=== PATIENT | male | born 1970 | race American Indian/Alaskan Native ===

== ENCOUNTER 2018-01-01 19:04 | Emergency (ER) | payer OTHER ==
[2018-01-01] MEDS ORDERED: NACL 0.9% 500 ML 500 ML IV ONE (19:22)
[2018-01-01] MEDS ORDERED: ADRENALIN SUB-Q ONE (19:22)
[2018-01-01] MEDS ORDERED: PEPCID IV ONE (19:23)
[2018-01-01] MEDS ORDERED: BENADRYL IV ONE (19:23)
--- NOTE | 2018-01-01 19:24 | Emergency Department Report ---
ED General Adult HPI - General Chief complaint: Allergic Reaction Stated complaint: TONGUE SWELLING Time Seen by Provider: 01/01/18 19:17 Source: patient, family, RN notes reviewed Mode of arrival: Ambulatory Limitations: No Limitations - History of Present Illness Initial comments: This is a 47-year-old male with a past medical history of schizophrenia, does not have a local primary care doctor, who presents to the ER with complaint of unprovoked painless swelling of the tongue. This started within the past 2 hours prior to presentation. This is never happened previously. Patient denies new medication, denies rash, denies new creams, colognes. His symptoms are constant, did not radiate anywhere, do not have exacerbating or relieving factors. He denies all other complaints. -: Sudden Location: mouth Radiation: non-radiation Consistency: constant Improves with: none Worsens with: none Associated Symptoms: denies: confusion, chest pain, cough, diaphoresis, fever/ chills, headaches, loss of appetite, malaise, nausea/vomiting, rash, seizure, shortness of breath, syncope, weakness - Related Data Home Medications Medication Instructions Recorded Confirmed Last Taken Brexpiprazole [Rexulti] 4 mg PO DAILY 01/01/18 01/01/18 Unknown Previous Rx's Medication Instructions Recorded Last Taken Type EPINEPHrine [Epipen 2-Demarco] 0.3 mg IM DAILY PRN #2 ml 01/01/18 Unknown Rx Famotidine [Pepcid] 20 mg PO BID #10 tablet 01/01/18 Unknown Rx diphenhydrAMINE [Benadryl] 50 mg PO Q8HR PRN #20 capsule 01/01/18 Unknown Rx predniSONE [Deltasone] 40 mg PO QDAY #8 tab 01/01/18 Unknown Rx Allergies Allergy/AdvReac Type Severity Reaction Status Date / Time Penicillins Allergy Swelling Verified 01/01/18 19:07 ED Review of Systems ROS: Stated complaint: TONGUE SWELLING Other details as noted in HPI Comment: All other systems reviewed and negative ED Past Medical Hx - Past Medical History Previous Medical History?: Yes Hx Psychiatric Treatment: Yes (schizophrenia) - Surgical History Past Surgical History?: No - Social History Smoking Status: Current Every Day Smoker Substance Use Type: Alcohol - Medications Home Medications: Home Medications Medication Instructions Recorded Confirmed Last Taken Type Brexpiprazole [Rexulti] 4 mg PO DAILY 01/01/18 01/01/18 Unknown History EPINEPHrine [Epipen 2-Demarco] 0.3 mg IM DAILY PRN #2 ml 01/01/18 Unknown Rx Famotidine [Pepcid] 20 mg PO BID #10 tablet 01/01/18 Unknown Rx diphenhydrAMINE [Benadryl] 50 mg PO Q8HR PRN #20 capsule 01/01/18 Unknown Rx predniSONE [Deltasone] 40 mg PO QDAY #8 tab 01/01/18 Unknown Rx ED Physical Exam - General Limitations: No Limitations General appearance: alert, in no apparent distress - Head Head exam: Present: atraumatic, normocephalic - Eye Eye exam: Present: normal appearance, PERRL, EOMI. Absent: nystagmus - ENT ENT exam: Present: mucous membranes moist, normal external ear exam, other ( speaking in full sentences. There is no stridor. There is no elevation of the uvula. There is no uvula enlargement.). Absent: normal orophraynx (there is lingual megaly.) - Neck Neck exam: Present: normal inspection, full ROM. Absent: tenderness, meningismus - Respiratory Respiratory exam: Present: normal lung sounds bilaterally. Absent: respiratory distress, chest wall tenderness - Cardiovascular Cardiovascular Exam: Present: regular rate, normal rhythm, normal heart sounds. Absent: bradycardia, tachycardia, irregular rhythm, systolic murmur, diastolic murmur, rubs, gallop - GI/Abdominal GI/Abdominal exam: Present: soft, normal bowel sounds. Absent: distended, tenderness, guarding, rebound, rigid, pulsatile mass - Rectal Rectal exam: Present: deferred - Extremities Exam Extremities exam: Present: normal inspection, full ROM, normal capillary refill , other (2+ pulses noted in the bilateral upper, lower extremities. Compartments soft. No long bony tenderness. The pelvis is stable.). Absent: pedal edema, joint swelling, calf tenderness - Back Exam Back exam: Present: normal inspection, full ROM. Absent: tenderness, CVA tenderness (R), paraspinal tenderness, vertebral tenderness - Neurological Exam Neurological exam: Present: alert, oriented X3, CN II-XII intact, other ( Extraocular movements intact. Tongue midline. No facial droop. Facial sensation intact to light touch in the V1, V2, V3 distribution bilaterally. 5 and 5 strength in 4 extremities.. Sensation is intact to light touch in 4 extremities.). Absent: motor sensory deficit - Psychiatric Psychiatric exam: Present: normal affect, normal mood - Skin Skin exam: Present: warm, dry, intact, normal color. Absent: rash ED Course Vital Signs 01/01/18 01/01/18 01/01/18 19:07 19:16 19:22 Temperature 98.4 F 98.2 F Pulse Rate 115 H 99 H 90 Respiratory 18 20 24 Rate Blood Pressure 74/45 103/68 Blood Pressure 103/68 [Right] O2 Sat by Pulse 97 100 Oximetry 01/01/18 01/01/18 01/01/18 19:30 20:00 21:00 Temperature Pulse Rate 90 91 H 100 H Respiratory 19 12 14 Rate Blood Pressure 111/69 123/90 123/90 Blood Pressure [Right] O2 Sat by Pulse 98 98 96 Oximetry - Reevaluation(s) Reevaluation #1: 01/01/18 19:47 Differential diagnosis, including when not limited to: Angioedema, anaphylaxis Assessment and plan: 47-year-old male with unprovoked idiopathic angioedema of the tongue. His hypotension has resolved, and his tachycardia has resolved. No obvious inciting agent based on his history, physical. He will be treated empirically with the typical allergy cocktail, as well as epinephrine empirically. He will be observed on a court monitor, and we will reassess. Reevaluation #2: 01/01/18 22:12 Patient has been reevaluated multiple times by myself. He continues to protect his airway, the tongue is not getting any bigger. He is not having any stridor. 01/01/18 23:01 Reevaluation #3: 01/01/18 23:02 Patient is reevaluated. The tongue is much smaller. He is speaking in full sentences. He has no airway difficulty. He is suitable for discharge at this time. He is eating and drinking. He will be discharged with appropriate medications and referred to outpatient primary care/allergy/ENT. ED Medical Decision Making - Lab Data Result diagrams: 01/01/18 19:23 01/01/18 19:23 Vital Signs 01/01/18 19:07 Temperature 98.4 F Pulse Rate 115 H Respiratory 18 Rate Blood Pressure 74/45 O2 Sat by Pulse 97 Oximetry Lab Results 01/01/18 Range/Units 19:23 WBC 6.5 (4.5-11.0) K/mm3 RBC 5.72 H (3.65-5.03) M/mm3 Hgb 18.6 H (11.8-15.2) gm/dl Hct 55.1 H (35.5-45.6) % MCV 97 H (84-94) fl MCH 33 H (28-32) pg MCHC 34 (32-34) % RDW 13.3 (13.2-15.2) % Plt Count 329 (140-440) K/mm3 - EKG Data When compared to previous EKG there are: previous EKG unavailable 01/01/18 19:50 Normal sinus, 97 beats per minute, normal axis, normal intervals, not a STEMI. Motion artifact noted. Critical care attestation.: If time is entered above; I have spent that time in minutes in the direct care of this critically ill patient, excluding procedure time. ED Disposition Clinical Impression: Tongue swelling Disposition: DC-01 TO HOME OR SELFCARE Is pt being admited?: No Condition: Good Instructions: Angioedema (ED) Additional Instructions: Take the steroids, Benadryl, Pepcid as directed for the next 5 days. Use the epinephrine pen only if patient develops inability to speak, inability to breathe, recurrent tongue swelling. Follow-up with an otolaryngology specialist, such as Dr. Owen Johnson , and photographic specialist (look on line to find one locally) or a primary care doctor for further evaluation of the tongue swelling within the next 5-7 days. Patient is theoretically at risk for rebound tongue swelling over the next 72 hours. Return to the ER right away with inability to speak, inability to breathe, recurrent swelling of the tongue, projectile vomiting, change in mental status. Referrals: PRIMARY CARE, [Primary Care Provider] - 3-5 Days ASHWINI KAMARA MD [Staff Physician] - 3-5 Days ANTWAN RODRIGUEZ MD [Staff Physician] - 3-5 Days
[2018-01-01 19:44] LABS: Hematocrit 55.1 % (35.5-45.6); Hemoglobin 18.6 gm/dl (11.8-15.2); Mean Corpuscular HGB Conc 34 % (32-34); Mean Corpuscular Hemoglobin 33 pg (28-32); Mean Corpuscular Volume 97 fl (84-94); Platelet Count 329 K/mm3 (140-440); Red Blood Count 5.72 M/mm3 (3.65-5.03); Red Cell Distribution Width 13.3 % (13.2-15.2)
[2018-01-01 19:54] LABS: INR 0.91 (0.87-1.13)
[2018-01-01 19:59] LABS: Alanine Aminotransferase 42 units/L (7-56); Albumin 4.3 g/dL (3.9-5); BUN/Creatinine Ratio 8; Blood Urea Nitrogen 10 mg/dL (9-20); Calcium 9.4 mg/dL (8.4-10.2); Hemolysis Index 21
[2018-01-01 23:50] VITALS: BP 107/77
== END 2018-01-01 23:50 | disposition home or self-care (01) ==
LOC: ED 19:04
DX: K14.8 Other diseases of tongue (principal); F20.9 Schizophrenia, unspecified; F17.200 Nicotine dependence, unspecified, uncomplicated; Z88.0 Allergy status to penicillin
CPT/HCPCS: 36415; 80053; 82550; 82962; 83735; 85027; 85610; 93005; 93010; 96372; 96374; 96375; 99284; J0171; J1200; J2930; J7040

== ENCOUNTER 2019-04-27 21:39 | Emergency (ER) | payer MEDICAID, MEDICARE, OTHER ==
[2019-04-27] MEDS ORDERED: ONDANSETRON 4 MG/2 ML INJ IV ONE (22:00)
[2019-04-27] MEDS ORDERED: MORPHINE 2 MG/1 ML INJ IV ONE (22:00)
[2019-04-27] MEDS ORDERED: FAMOTIDINE 20 MG/2 ML INJ IV ONE (22:00)
[2019-04-27] MEDS ORDERED: SODIUM CHLORIDE 0.9% 1000 ML 1,000 ML IV ONE (22:00)
--- NOTE | 2019-04-27 22:15 | Emergency Department Report ---
ED Abdominal Pain HPI - General Chief Complaint: Abdominal Pain Stated Complaint: N/V Time Seen by Provider: 04/27/19 21:50 Source: patient, EMS Mode of arrival: Stretcher Limitations: Physical Limitation - History of Present Illness Initial Comments: 48-year-old male, history of hypertension and alcohol abuse, reports that he drinks more than 12 beers a day plus hard liquor, presents to ED with vomiting and abdominal pain since earlier today. Patient denies vomiting blood or having any blood in the stool. Patient reports abdominal pain is located diffusely, nonradiating. MD Complaint: abdominal pain -: This afternoon Location: diffuse Radiation: none Migration to: no migration Severity: moderate Severity scale (0 -10): 10 Quality: cramping Consistency: constant Improves With: nothing Worsens With: nothing Associated Symptoms: nausea, vomiting, hematemesis, hematochezia, melena. denies: diarrhea, fever - Related Data Home Medications Medication Instructions Recorded Confirmed Last Taken Brexpiprazole [Rexulti] 4 mg PO DAILY 01/01/18 01/01/18 Unknown Previous Rx's Medication Instructions Recorded Last Taken Type EPINEPHrine [Epipen 2-Demarco] 0.3 mg IM DAILY PRN #2 ml 01/01/18 Unknown Rx Famotidine [Pepcid] 20 mg PO BID #10 tablet 01/01/18 Unknown Rx diphenhydrAMINE [Benadryl] 50 mg PO Q8HR PRN #20 capsule 01/01/18 Unknown Rx predniSONE [Deltasone] 40 mg PO QDAY #8 tab 01/01/18 Unknown Rx Dicyclomine [Bentyl] 20 mg PO QID PRN #20 tablet 04/28/19 Unknown Rx Ondansetron [Zofran Odt] 4 mg PO Q8HR PRN #20 tab.rapdis 04/28/19 Unknown Rx traMADoL [Ultram] 50 mg PO Q6HR PRN #7 tablet 04/28/19 Unknown Rx Allergies Allergy/AdvReac Type Severity Reaction Status Date / Time Penicillins Allergy Swelling Verified 01/01/18 19:07 ED Review of Systems ROS: Stated complaint: N/V Other details as noted in HPI Comment: All other systems reviewed and negative Constitutional: denies: chills, fever Gastrointestinal: abdominal pain, nausea, vomiting ED Past Medical Hx - Past Medical History Previous Medical History?: Yes Hx Hypertension: Yes Hx Psychiatric Treatment: Yes (schizophrenia) - Surgical History Past Surgical History?: No - Social History Smoking Status: Current Every Day Smoker Substance Use Type: Alcohol - Medications Home Medications: Home Medications Medication Instructions Recorded Confirmed Last Taken Type Brexpiprazole [Rexulti] 4 mg PO DAILY 01/01/18 01/01/18 Unknown History EPINEPHrine [Epipen 2-Demarco] 0.3 mg IM DAILY PRN #2 ml 01/01/18 Unknown Rx Famotidine [Pepcid] 20 mg PO BID #10 tablet 01/01/18 Unknown Rx diphenhydrAMINE [Benadryl] 50 mg PO Q8HR PRN #20 capsule 01/01/18 Unknown Rx predniSONE [Deltasone] 40 mg PO QDAY #8 tab 01/01/18 Unknown Rx Dicyclomine [Bentyl] 20 mg PO QID PRN #20 tablet 04/28/19 Unknown Rx Ondansetron [Zofran Odt] 4 mg PO Q8HR PRN #20 tab.rapdis 04/28/19 Unknown Rx traMADoL [Ultram] 50 mg PO Q6HR PRN #7 tablet 04/28/19 Unknown Rx ED Physical Exam - General Limitations: Physical Limitation General appearance: alert, in no apparent distress - Head Head exam: Present: atraumatic, normocephalic - Eye Eye exam: Present: normal appearance, PERRL, EOMI - ENT ENT exam: Present: mucous membranes moist - Neck Neck exam: Present: normal inspection - Respiratory Respiratory exam: Present: normal lung sounds bilaterally. Absent: respiratory distress - Cardiovascular Cardiovascular Exam: Present: regular rate, normal rhythm - GI/Abdominal GI/Abdominal exam: Present: soft, tenderness (diffuse tenderness). Absent: distended - Extremities Exam Extremities exam: Present: normal inspection - Neurological Exam Neurological exam: Present: alert, oriented X3 - Psychiatric Psychiatric exam: Present: normal affect, normal mood - Skin Skin exam: Present: warm, dry, intact, normal color ED Course Vital Signs 04/27/19 04/27/19 04/27/19 21:49 22:21 22:51 Temperature 98.2 F Pulse Rate 98 H Respiratory 22 16 16 Rate Blood Pressure 161/92 Blood Pressure 161/92 [Left] O2 Sat by Pulse 100 Oximetry 04/27/19 04/28/19 04/28/19 23:00 00:49 01:13 Temperature 98.2 F Pulse Rate 83 86 Respiratory 17 16 16 Rate Blood Pressure 136/83 Blood Pressure 138/86 [Left] O2 Sat by Pulse 98 97 Oximetry ED Medical Decision Making - Lab Data Result diagrams: 04/27/19 22:25 04/27/19 22:25 - Radiology Data Radiology results: report reviewed, image reviewed - Medical Decision Making 48-year-old male with acute alcoholic pancreatitis. Lipase level of 498, evidence of pancreatitis on CT. Remainder of labs are normal. Vital signs are normal as well. Pain improved with medications. No emesis here in ED. Clear liquid diet advised, patient's is at bedside. Outpatient follow-up advis ed. Return precautions given. Patient advised to abstain from alcohol use. - Differential Diagnosis pancreatitis, gastritis, bowel obstruction Critical care attestation.: If time is entered above; I have spent that time in minutes in the direct care of this critically ill patient, excluding procedure time. ED Disposition Clinical Impression: Acute alcoholic pancreatitis Disposition: TO HOME OR SELFCARE Is pt being admited?: No Condition: Stable Instructions: Pancreatitis (ED) Prescriptions: Dicyclomine [Bentyl] 20 mg PO QID PRN #20 tablet PRN Reason: abdominal pain traMADoL [Ultram] 50 mg PO Q6HR PRN #7 tablet PRN Reason: Pain Ondansetron [Zofran Odt] 4 mg PO Q8HR PRN #20 tab.rapdis PRN Reason: Vomiting Referrals: PRIMARY CARE, [Primary Care Provider] - 3-5 Days [facility] [Provider Group] - 3-5 Days [facility] [Provider Group] - 3-5 Days Forms: Accompanied Note Time of Disposition: 00:56
[2019-04-27 22:40] LABS: Basophils # (Auto) 0.1 K/mm3 (0.0-0.1); Basophils % (Auto) 1.1 % (0.0-1.8); Eosinophils # (Auto) 0.1 K/mm3 (0.0-0.4); Eosinophils % (Auto) 1.1 % (0.0-4.3); Hematocrit 44.6 % (35.5-45.6); Hemoglobin 15.2 gm/dl (11.8-15.2); Lymphocytes # (Auto) 1.6 K/mm3 (1.2-5.4); Lymphocytes % (Auto) 28.6 % (13.4-35.0); Mean Corpuscular HGB Conc 34 % (32-34); Mean Corpuscular Volume 98 fl (84-94); Monocytes # (Auto) 0.4 K/mm3 (0.0-0.8); Monocytes % (Auto) 7.8 % (0.0-7.3); Platelet Count 212 K/mm3 (140-440); Red Blood Count 4.58 M/mm3 (3.65-5.03); Red Cell Distribution Width 14.7 % (13.2-15.2)
[2019-04-27 22:54] LABS: Alanine Aminotransferase 16 units/L (7-56); Albumin 4.5 g/dL (3.9-5); BUN/Creatinine Ratio 11; Blood Urea Nitrogen 9 mg/dL (9-20); Calcium 8.9 mg/dL (8.4-10.2); Hemolysis Index 21
[2019-04-27 23:00] LABS: Bilirubin,Direct < 0.2 mg/dL (0-0.2)
--- NOTE | 2019-04-28 00:08 | Cat Scan Report ---
CT abdomen pelvis w con INDICATION: ABD PAIN. TECHNIQUE: All CT scans at this location are performed using the following dose modulation technique: Automated exposure control. CONTRAST: Omnipaque 300, 100 cc IV injection. COMPARISON: None available. CT abdomen: Evaluation the parenchymal organs demonstrates moderate enlargement of the pancreatic hea d/neck region with adjacent edema. There is mild involvement of the body/tail. The liver demonstrates diffuse fatty infiltration. Remaining parenchymal organs are unremarkable. Evaluation of the bowel demonstrates secondary inflammation of the duodenum. The remaining bowel is u nremarkable. No abdominal mass or localized fluid collection. CT PELVIS: Negative for mass, fluid or inflammation. IMPRESSION: 1. Moderate pancreatitis greatest at the pancreatic head, neck and uncinate process regions. 2. Secondary duodenal inflammation. 3. Mild fatty infiltration of the liver. Signer Name: Harris Eduardo MD Signed: 04/28/2019 12:03 AM Workstation Name: [id number]
[2019-04-28] MEDS ORDERED: MORPHINE 4 MG/1 ML INJ IV ONE (00:44)
[2019-04-28 01:13] VITALS: BP 138/86
== END 2019-04-28 01:15 | disposition home or self-care (01) ==
LOC: ED 21:39
DX: K85.20 Alcohol induced acute pancreatitis without necrosis or infection (principal); R11.2 Nausea with vomiting, unspecified; I10 Essential (primary) hypertension; F20.9 Schizophrenia, unspecified; F17.200 Nicotine dependence, unspecified, uncomplicated; F10.10 Alcohol abuse, uncomplicated; Z79.899 Other long term (current) drug therapy; Z88.0 Allergy status to penicillin
CPT/HCPCS: 36415; 74177; 80048; 80076; 83690; 85025; 96361; 96374; 96375; 96376; 99284; J2270; J2405; J7030; Q9967

== ENCOUNTER 2021-03-28 17:33 | Emergency (ER) | payer OTHER, MEDICAID ==
[2021-03-28] MEDS ORDERED: ONDANSETRON 4 MG ODT TAB PO ONE (17:56)
[2021-03-28] MEDS ORDERED: DICYCLOMINE 20 MG TAB PO ONE (17:56)
--- NOTE | 2021-03-28 17:56 | Emergency Department Report ---
HPI - General Chief Complaint: Chest Pain Time Seen by Provider: 03/28/21 17:43 - HPI HPI: 50-year-old -[place] male presents to the emergency department with a complaint of a 1 week history of upper abdominal pain that worsens with deep breaths. Overall the patient has been having some chronic abdominal pain as well for the past couple of "months." Patient was seen here in 2019 for alcoholic pancreatitis. Patient does admit to history of chronic alcohol use and dependence. However, the patient says that he has not been drinking much alcohol over the past week because of his symptoms. He also complains of nausea with occasional vomiting and decreased appetite. He denies any fever, diarrhea, constipation, back pain, dysuria. No recent travel or sick contacts at home. ED Past Medical Hx - Past Medical History Previous Medical History?: Yes Hx Hypertension: Yes Hx Psychiatric Treatment: Yes (schizophrenia) - Surgical History Past Surgical History?: No - Social History Smoking Status: Current Every Day Smoker Substance Use Type: Alcohol - Medications Home Medications: Home Medications Medication Instructions Recorded Confirmed Last Taken Type Brexpiprazole [Rexulti] 4 mg PO DAILY 01/01/18 01/01/18 Unknown History EPINEPHrine [Epipen 2-Demarco] 0.3 mg IM DAILY PRN #2 ml 01/01/18 Unknown Rx Famotidine [Pepcid] 20 mg PO BID #10 tablet 01/01/18 Unknown Rx diphenhydrAMINE [Benadryl] 50 mg PO Q8HR PRN #20 capsule 01/01/18 Unknown Rx predniSONE [Deltasone] 40 mg PO QDAY #8 tab 01/01/18 Unknown Rx Ondansetron [Zofran Odt] 4 mg PO Q8HR PRN #20 tab.rapdis 04/28/19 Unknown Rx traMADoL [Ultram] 50 mg PO Q6HR PRN #7 tablet 04/28/19 Unknown Rx Dicyclomine [Bentyl] 20 mg PO QID PRN #20 tablet 03/28/21 Unknown Rx Ondansetron [Zofran Odt] 4 mg PO Q8HR PRN #20 tab.rapdis 03/28/21 Unknown Rx ED Review of Systems ROS: Stated complaint: STOMACH AND CHEST PAIN Other details as noted in HPI Comment: All other systems reviewed and negative Constitutional: denies: chills, fever Eyes: denies: eye pain, vision change ENT: denies: ear pain, throat pain Respiratory: denies: cough, shortness of breath Cardiovascular: denies: chest pain, palpitations Gastrointestinal: abdominal pain, nausea, vomiting Genitourinary: denies: dysuria, discharge Musculoskeletal: denies: back pain, arthralgia Skin: denies: rash, lesions Neurological: denies: headache, weakness Physical Exam - Physical Exam Vital Signs: Vital Signs 03/28/21 17:40 Temperature 98.2 F Pulse Rate 102 H Respiratory 16 Rate Blood Pressure 140/81 [Left] O2 Sat by Pulse 100 Oximetry Physical Exam: GENERAL: The patient is well-developed well-nourished. HENT: Normocephalic. Atraumatic. Patient has moist mucous membranes. EYES: Extraocular motions are intact. NECK: Supple. Trachea is midline. CHEST/LUNGS: Clear to auscultation. There is no respiratory distress noted. HEART/CARDIOVASCULAR: Regular. There is no tachycardia. There is no murmur. ABDOMEN: Abdomen is soft. Upper abdominal tenderness to palpation. No guarding. Patient has normal bowel sounds. There is no abdominal distention. SKIN: Skin is warm and dry. NEURO: The patient is awake, alert, and oriented. The patient is cooperative. The patient has no focal neurologic deficits. Normal speech. MUSCULOSKELETAL: There is no tenderness or deformity. There is no limitation range of motion. ED Course Vital Signs 03/28/21 17:40 Temperature 98.2 F Pulse Rate 102 H Respiratory 16 Rate Blood Pressure 140/81 [Left] O2 Sat by Pulse 100 Oximetry ED Medical Decision Making - Lab Data Result diagrams: 03/28/21 18:04 03/28/21 18:04 Lab Results 03/28/21 03/28/21 03/28/21 Range/Units 18:04 18:04 18:04 WBC 6.5 (4.5-11.0) K/mm3 RBC 4.21 (3.65-5.03) M/mm3 Hgb 14.5 (11.8-15.2) gm/dl Hct 41.6 (35.5-45.6) % MCV 99 H (84-94) fl MCH 35 H (28-32) pg MCHC 35 H (32-34) % RDW 14.1 (13.2-15.2) % Plt Count 584 H (140-440) K/mm3 Lymph % (Auto) 17.5 (13.4-35.0) % Stearns % (Auto) 8.4 H (0.0-7.3) % Eos % (Auto) 0.6 (0.0-4.3) % Baso % (Auto) 1.4 (0.0-1.8) % Lymph # (Auto) 1.1 L (1.2-5.4) K/mm3 Stearns # (Auto) 0.5 (0.0-0.8) K/mm3 Eos # (Auto) 0.0 (0.0-0.4) K/mm3 Baso # (Auto) 0.1 (0.0-0.1) K/mm3 Seg Neutrophils % 72.1 H (40.0-70.0) % Seg Neutrophils # 4.7 (1.8-7.7) K/mm3 Sodium 131 L (137-145) mmol/L Potassium 3.7 (3.6-5.0) mmol/L Chloride 94.4 L (98-107) mmol/L Carbon Dioxide 22 (22-30) mmol/L Anion Gap 18 mmol/L BUN 3 L (9-20) mg/dL Creatinine 0.8 (0.8-1.3) mg/dL Estimated GFR > 60 ml/min BUN/Creatinine Ratio 4 % Glucose 130 H (75-100) mg/dL Calcium 9.1 (8.4-10.2) mg/dL Total Bilirubin < 0.20 (0.1-1.2) mg/dL Direct Bilirubin < 0.2 (0-0.2) mg/dL Indirect Bilirubin 0.0 mg/dL AST 21 (5-40) units/L ALT 21 (7-56) units/L Alkaline Phosphatase 93 (35-129) units/L Total Protein 7.1 (6.3-8.2) g/dL Albumin 3.6 L (3.9-5) g/dL Albumin/Globulin Ratio 1.0 % Lipase 65 H (13-60) units/L Urine Color (Yellow) Urine Turbidity (Clear) Urine pH (5.0-7.0) Ur Specific Chester (1.003-1.030) Urine Protein (Negative) mg/dL Urine Glucose (UA) (Negative) mg/dL Urine Ketones (Negative) mg/dL Urine Blood (Negative) Urine Nitrite (Negative) Urine Bilirubin (Negative) Urine Urobilinogen (<2.0) mg/dL Ur Leukocyte Esterase (Negative) Urine WBC (Auto) (0.0-6.0) /HPF Urine RBC (Auto) (0.0-6.0) /HPF U Epithel Cells (Auto) (0-13.0) /HPF Plasma/Serum Alcohol < 0.01 (0-0.07) % 03/28/21 Range/Units Unknown WBC (4.5-11.0) K/mm3 RBC (3.65-5.03) M/mm3 Hgb (11.8-15.2) gm/dl Hct (35.5-45.6) % MCV (84-94) fl MCH (28-32) pg MCHC (32-34) % RDW (13.2-15.2) % Plt Count (140-440) K/mm3 Lymph % (Auto) (13.4-35.0) % Stearns % (Auto) (0.0-7.3) % Eos % (Auto) (0.0-4.3) % Baso % (Auto) (0.0-1.8) % Lymph # (Auto) (1.2-5.4) K/mm3 Stearns # (Auto) (0.0-0.8) K/mm3 Eos # (Auto) (0.0-0.4) K/mm3 Baso # (Auto) (0.0-0.1) K/mm3 Seg Neutrophils % (40.0-70.0) % Seg Neutrophils # (1.8-7.7) K/mm3 Sodium (137-145) mmol/L Potassium (3.6-5.0) mmol/L Chloride (98-107) mmol/L Carbon Dioxide (22-30) mmol/L Anion Gap mmol/L BUN (9-20) mg/dL Creatinine (0.8-1.3) mg/dL Estimated GFR ml/min BUN/Creatinine Ratio % Glucose (75-100) mg/dL Calcium (8.4-10.2) mg/dL Total Bilirubin (0.1-1.2) mg/dL Direct Bilirubin (0-0.2) mg/dL Indirect Bilirubin mg/dL AST (5-40) units/L ALT (7-56) units/L Alkaline Phosphatase (35-129) units/L Total Protein (6.3-8.2) g/dL Albumin (3.9-5) g/dL Albumin/Globulin Ratio % Lipase (13-60) units/L Urine Color Yellow (Yellow) Urine Turbidity Clear (Clear) Urine pH 7.0 (5.0-7.0) Ur Specific [place] 1.009 (1.003-1.030) Urine Protein <15 mg/dl (Negative) mg/dL Urine Glucose (UA) 150 (Negative) mg/dL Urine Ketones Neg (Negative) mg/dL Urine Blood Neg (Negative) Urine Nitrite Neg (Negative) Urine Bilirubin Neg (Negative) Urine Urobilinogen < 2.0 (<2.0) mg/dL Ur Leukocyte Esterase Tr (Negative) Urine WBC (Auto) 1.0 (0.0-6.0) /HPF Urine RBC (Auto) 1.0 (0.0-6.0) /HPF U Epithel Cells (Auto) < 1.0 (0-13.0) /HPF Plasma/Serum Alcohol (0-0.07) % - Radiology Data Radiology results: image reviewed interpreted by me: Chest x-ray does not show any acute process. There are no pleural effusions, obvious pneumonia and there is no pneumothorax. No widened mediastinum. Abdominal x-ray shows nonspecific nonobstructive bowel gas. No free air. - Medical Decision Making This patient presents to the emergency department with a complaint of a 1 week history of some upper abdominal pain, but also admits to some intermittent chronic abdominal pains. Patient has a history of alcoholic pancreatitis from about 2 years ago. He continues to drink alcohol daily, but does not have any signs of acute intoxication and does not appear to be in alcohol withdrawal at this time. There is some reproducible upper abdominal tenderness to palpation, but the abdomen is soft, nondistended and nontoxic in appearance. He does not have any peritoneal signs. Labs have been mostly unremarkable including CBC, metabolic panel, but the lipase is slightly elevated at 65. This is nothing compared to the greater than 400 that he had during his last visit with acute pancreatitis, but could indicate early pancreatitis or chronic pancreatitis. Abdominal x-ray shows nonspecific nonobstructive bowel gas and no free air. Chest x-ray does not show any pneumonia, pleural effusions, pneumothorax, widened mediastinum, or any other acute process. Vital signs reassuring throughout his ED course including being afebrile. During one of my reevaluation's, the patient is seen resting comfortably and eating Starburst candy. The patient does not appear in any acute distress and does not appear to require a medical admission at this time. We discussed avoiding alcohol, fatty and spicy foods. The patient will be placed on Bentyl and Zofran ODT. He has been given outpatient referrals for primary care and gastroenterology. He will return to the emergency department with any worsening of his symptoms or with any acute distress. Critical Care Time: No Critical care attestation.: If time is entered above; I have spent that time in minutes in the direct care of this critically ill patient, excluding procedure time. ED Disposition Clinical Impression: Chronic alcohol use, Elevated lipase Abdominal pain Qualifiers: Abdominal location: upper abdomen, unspecified Qualified Code(s): R10.10 - Upper abdominal pain, unspecified Disposition: 01 HOME / SELF CARE / HOMELESS Is pt being admited?: No Condition: Stable Instructions: Alcohol Use Disorder, Abdominal Pain, Adult, Chronic Pancreati tis, Pancreatitis Eating Plan Additional Instructions: Please follow-up with a primary care physician in the next few days. I have given you a referral for a local primary care physician, Dr. Eckert, and a primary care clinic, [facility]. I have given you a referral for [facility] to follow-up regarding your abdominal pains and history of pancreatitis. Please avoid any further alcohol use and I have given you information regarding dietary changes to make. Return to the emergency department with any worsening of your symptoms, new or concerning symptoms not addressed during this current emergency department visit, or with any acute distress. Prescriptions: Dicyclomine [Bentyl] 20 mg PO QID PRN #20 tablet PRN Reason: abdominal pain Ondansetron [Zofran Odt] 4 mg PO Q8HR PRN #20 tab.rapdis PRN Reason: Nausea Referrals: AMADA ECKERT MD [Staff Physician] - 3-[address] [facility] [Provider Group] - 3-5 Days [facility] [Provider Group] - 3-5 Days Time of Disposition: 19:54
[2021-03-28 18:18] LABS: Basophils # (Auto) 0.1 K/mm3 (0.0-0.1); Basophils % (Auto) 1.4 % (0.0-1.8); Eosinophils % (Auto) 0.6 % (0.0-4.3); Hematocrit 41.6 % (35.5-45.6); Hemoglobin 14.5 gm/dl (11.8-15.2); Lymphocytes # (Auto) 1.1 K/mm3 (1.2-5.4); Lymphocytes % (Auto) 17.5 % (13.4-35.0); Mean Corpuscular HGB Conc 35 % (32-34); Mean Corpuscular Volume 99 fl (84-94); Monocytes # (Auto) 0.5 K/mm3 (0.0-0.8); Monocytes % (Auto) 8.4 % (0.0-7.3); Platelet Count 584 K/mm3 (140-440); Red Blood Count 4.21 M/mm3 (3.65-5.03); Red Cell Distribution Width 14.1 % (13.2-15.2)
--- NOTE | 2021-03-28 18:28 | XRay Report ---
Abdominal series and chest radiograph INDICATION: Pain FINDINGS: Lungs are clear heart size appears normal. Nonspecific bowel gas pattern. No large calcific ations. No acute bone findings. Signer Name: Manjit Saravia MD Signed: 03/28/2021 6:23 PM Workstation Name: [id number]
[2021-03-28 19:05] LABS: Bilirubin,Urine NEG (Negative); Blood,Urine NEG (Negative); Color,Urine Yellow (Yellow); Protein,Urine <15 mg/dL mg/dL (Negative); Urobilinogen,Urine < 2.0 mg/dL (<2.0)
[2021-03-28 19:07] LABS: Alanine Aminotransferase 21 units/L (7-56); Albumin 3.6 g/dL (3.9-5); BUN/Creatinine Ratio 4; Blood Urea Nitrogen 3 mg/dL (9-20); Calcium 9.1 mg/dL (8.4-10.2); Hemolysis Index 3
[2021-03-28 19:17] LABS: Bilirubin,Direct < 0.2 mg/dL (0-0.2)
[2021-03-28 20:34] VITALS: BP 116/75
== END 2021-03-28 21:17 | disposition home or self-care (01) ==
LOC: ED 17:33
DX: R10.10 Upper abdominal pain, unspecified (principal); R74.8 Abnormal levels of other serum enzymes; Z72.89 Other problems related to lifestyle; I10 Essential (primary) hypertension; F20.9 Schizophrenia, unspecified; F17.200 Nicotine dependence, unspecified, uncomplicated
CPT/HCPCS: 36415; 74022; 80048; 80076; 80320; 81001; 83690; 85025; 99284; G0480; Q0162

== ENCOUNTER 2021-05-17 10:44 | Outpatient (CLI) | payer MEDICAID ==
[2021-05-17 11:38] LABS: Blood Urea Nitrogen < 1 mg/dL (9-20)
--- NOTE | 2021-05-17 13:13 | Cat Scan Report ---
CT ABDOMEN AND PELVIS WITH CONTRAST HISTORY: Abdominal pain. COMPARISON: None. TECHNIQUE: CT images of the abdomen and pelvis were obtained following administration of intravenous contrast. All CT scans at this location are performed using CT dose reduction for ALARA by means of automated exposure control. CONTRAST: 100 ml of intravenous contrast administered. FINDINGS: Limited evaluation of the lung bases shows consolidation within the lung bases concerning for the pre sence of infection, most pronounced on the right. Enlarged edematous appearance of the pancreas with peripancreatic fluid stranding. Questionable hypoe nhancing components are noted primarily within the region of the head. No focal fluid collection to s uggest the presence of abscess. The liver, kidneys, spleen, adrenal glands, and gallbladder are unremarkable. Gastrointestinal tract shows no evidence of bowel wall thickening or pathologic distention. No free intraperitoneal gas. The appendix is visualized and is normal in appearance. Urinary bladder is unremarkable. Osseous structures show no evidence of acute fracture or aggressive osseous destructive lesion. IMPRESSION: Findings of moderate to severe acute pancreatitis as evidenced by enlarged edematous appearance of pa ncreas with peripancreatic fluid stranding. There are questionable hypodense components (possibly are as of early/developing necrosis), most pronounced in the region of the pancreatic head. No focal flui d collections is the presence of abscess. Recommend imaging follow-up to ensure complete resolution a nd to assess for any areas of necrosis. Mild consolidation in the lung bases, most pronounced in the right, concerning for infection. Signer Name: Curt Aguilar MD Signed: 05/17/2021 1:09 PM Workstation Name: [id number]
== END 2021-05-17 10:45 | disposition home or self-care (01) ==
LOC: CT 10:44
PROVIDERS: ATTEND Internal Medicine Gastroenterology
DX: K85.90 Acute pancreatitis without necrosis or infection, unspecified (principal); R63.4 Abnormal weight loss
CPT/HCPCS: 36415; 74177; 82565; 84520; Q9967